=== PATIENT | female | born 2000 | race Caucasian/White ===

== ENCOUNTER 2021-07-22 20:01 | Emergency (ER) | payer BC, OTHER ==
[2021-07-22] MEDS ORDERED: Ibuprofen 200 MG TAB ONE (21:23)
== END 2021-07-22 21:56 | disposition home or self-care (01) ==
LOC: CSHERS 20:01
DX: S63.91XA Sprain of unspecified part of right wrist and hand, initial encounter (principal); J45.909 Unspecified asthma, uncomplicated; W21.89XA Striking against or struck by other sports equipment, initial encounter